=== PATIENT | female | born 1985 | race Caucasian/White ===

== ENCOUNTER 2017-05-19 09:53 | Emergency (ER) | payer MEDICAID ==
[2017-05-19 10:01] VITALS: RESP 16
[2017-05-19 10:28] LABS: COLOR YELLOW; LEUKOCYTE ESTERASE,URINE NEGATIVE (NEGATIVE); NITRITE,URINE NEGATIVE (NEGATIVE)
[2017-05-19 10:31] LABS: BACTERIA TRACE /hpf (NONE SEEN); MUCUS TRACE /lpf (NONE-1+)
--- NOTE | 2017-05-19 10:51 | EDPHY ---
H & P Time Seen by Provider: 05/19/17 10:13 HPI/ROS: CHIEF COMPLAINT: Dysuria, increased frequency x1 week HISTORY OF PRESENT ILLNESS: 31-year-old immunocompetent female history of frequent urinary tract infections complaining of 1 week of dysuria, increased frequency. No back or flank pain. No abdominal pain. No nausea or vomiting. No fever or chills. No abnormal vaginal bleeding or discharge. No flu-like symptoms PRIMARY CARE PROVIDER: REVIEW OF SYSTEMS: A ten point review of systems was performed and is negative with the exception of the items mentioned in the HPI PAST MEDICAL & SURGICAL HISTORY: No pertinent medical or surgical history SOCIAL HISTORY: nonsmoker PHYSICAL EXAM (Prior to examination, patient consented to physical exam, hands were washed and my usual and customary physical exam procedures followed) 1) GENERAL: Well-developed, well-nourished, alert and oriented. Appears nontoxic 2) HEAD: Normocephalic, atraumatic 3) HEENT: Pupils equal, round, reactive to light bilaterally. Sclera anicteric. 4) NECK: Full range of motion, no meningeal signs. 5) LUNGS: Clear auscultation bilaterally, no wheezes, no rhonchi, no retractions. 6) HEART: Regular rate and rhythm, no murmur, no heave, no gallop. 7) ABDOMEN: No guarding, no rebound, no focal tenderness, 8) MUSCULOSKELETAL: No peripheral edema or discoloration. 9) BACK: No CVA tenderness 10) SKIN: No rash, no petechiae. 11) Psychiatric: Patient is oriented X 3, there is no agitation. DIFFERENTIAL DIAGNOSIS: in no particular include but limited to urosepsis, cystitis, pyelonephritis, nephrolithiasis Smoking Status: Current every day smoker Constitutional: Initial Vital Signs Temperature (C) 36.8 C 05/19/17 09:58 Heart Rate 66 05/19/17 09:58 Respiratory Rate 16 05/19/17 09:58 Blood Pressure 109/61 05/19/17 09:58 O2 Sat (%) 99 05/19/17 09:58 O2 Delivery Mode Room Air Allergies/Adverse Reactions: Penicillins Allergy (Verified 03/16/15 19:11) Home Medications: Medication Instructions Recorded Amitriptyline HCl 50 mg PO HS 03/03/16 Diazepam [Valium 5 MG (*)] 5 mg PO BID PRN 03/03/16 Prazosin HCl [Minipress 1mg (*)] 2 mg PO HS 03/03/16 Topiramate [Topamax 100MG (*)] 100 mg PO HS 03/03/16 Topiramate [Topamax 100MG (*)] 200 mg PO DAILY 03/03/16 oxyCODONE HCL/ACETAMINOPHEN 1 tab PO BID PRN 03/03/16 [Percocet 7.5-325 mg Tablet] tiZANidine HCL [Zanaflex] 4 mg PO TID 03/03/16 Promethazine HCl 25 mg PO Q6 #30 tablet 03/04/16 Acyclovir 400 mg PO TID #21 tablet 05/19/17 Cephalexin [Keflex] 500 mg PO QID 7 Days 05/19/17 Phenazopyridine HCl [Pyridium] 200 mg PO PC #10 tab 05/19/17 MDM/Departure - [facility] ED Course/Re-evaluation: I feel the patient can be treated on an outpatient basis as I believe her to be a competent decision-maker, shows no signs of urosepsis, afebrile, no comorbid medical conditions. Nonetheless, I have provided acute urinary tract infection red flag signs and symptoms precautions, and reasons to return to the emergency department. The patient understands that this diagnosis is provisional and can never be 100% accurate. Usual and customary warnings were given concerning the clinical impression and all the patient's questions were answered. The patient was instructed to return to the emergency department should her symptoms worsen or return, or develop any new symptoms, otherwise to followup as directed in discharge instructions. - Depart Disposition: Home, Routine, Self-Care Clinical Impression: Possible herpes genitalis Urinary tract infection Qualifiers: Urinary tract infection type: acute cystitis Hematuria presence: with hematuria Qualified Code(s): N30.01 - Acute cystitis with hematuria Condition: Good Instructions: Urinary Tract Infection in Women (ED), Genital Herpes Simplex (ED ) Additional Instructions: Return to the ER immediately if you experience fevers/chills, flu like symptoms , inability to tolerate oral intake, nausea or vomiting, or any other symptoms that concern you. Prescriptions: Acyclovir 400 mg PO TID #21 tablet Cephalexin [Keflex] 500 mg PO QID 7 Days Phenazopyridine HCl [Pyridium] 200 mg PO PC #10 tab Referrals: MICHELLE HOLLAND [Primary Care Provider] - 2-3 days, call for appt.
[2017-05-19 11:03] VITALS: BP 110/67; PULSE 69; TEMP 98.4; O2SAT 97
== END 2017-05-19 11:03 | disposition home or self-care (01) ==
DX: N30.01 Acute cystitis with hematuria (principal); B96.89 Other specified bacterial agents as the cause of diseases classified elsewhere; F17.200 Nicotine dependence, unspecified, uncomplicated